=== PATIENT | female | born 1985 | race Hispanic/Latino ===

== ENCOUNTER 2023-05-25 16:25 | Emergency (ER) | payer BC ==
[~2023-05-25] VITALS: Ht 165.1 cm; Wt 83.9 kg
[2023-05-25] MEDS ORDERED: 0.9%NACL 1000ML 1,000 ML IV SCH (17:00)
[2023-05-25] MEDS ORDERED: KETOROLAC 30MG VIAL (30MG/ML) IVP ONE (17:00)
[2023-05-25 17:14] LABS: APPEARANCE,URINE CLEAR (CLEAR); BILIRUBIN,URINE NEGATIVE (NEGATIVE); GLUCOSE, URINE (UA) NEGATIVE (NEGATIVE); KETONES,URINE NEGATIVE (NEGATIVE); LEUKOCYTE ESTERASE ,URINE NEGATIVE Leu/uL (NEGATIVE); NITRATE,URINE NEGATIVE (NEGATIVE); PROTEIN,URINE NEGATIVE (NEGATIVE); UROBILINOGEN,URINE 0.2 mg/dL (0.2-1.0)
[2023-05-25 17:15] LABS: ADD UA MICROSCOPIC YES; COLOR,URINE LIGHT-YELLOW (YELLOW)
[2023-05-25 17:16] LABS: SQUAMOUS EPITHELIAL CELL,UR RARE /HPF (0-2); WBC,URINE 0-1 /HPF (0-1)
[2023-05-25 17:42] LABS: HEMATOCRIT 37.3 % (36-48); MEAN CORPUSCULAR HEMOGLOBIN 28.6 pg (27.0-33.0); MEAN CORPUSCULAR HGB CONC 33.5 g/dL (32.0-36.0); MEAN CORPUSCULAR VOLUME 85.4 fL (79-99); PLATELET COUNT (AUTO) 395 K/uL (130-400); RED BLOOD CELL COUNT(AUTO) 4.37 MIL/uL (4.00-5.50); RED CELL DISTRIBUTION WIDTH 12.9 % (11.0-15.5); WHITE BLOOD COUNT (AUTO) 10.8 K/uL (4.8-10.8)
[2023-05-25 17:58] LABS: CREATININE 0.7 mg/dL (0.5-1.5); POTASSIUM 3.8 mmol/L (3.5-5.1)
[2023-05-25 18:03] LABS: ALBUMIN 3.2 g/dL (3.5-5.0); BILIRUBIN,TOTAL 0.1 mg/dL (0.2-1.0); TOTAL PROTEIN, SERUM 7.4 g/dL (6.0-8.3)
[2023-05-25 18:41] LABS: BAND NEUTROPHILS % (MANUAL) 1 % (0-2); EOSINOPHILS % (MANUAL) 2 % (1-6); LYMPHOCYTES % (MANUAL) 37 % (22-44); MAN.DIFF COMMENT-IMPRESSION MANUAL DIFFERENTIAL; MONOCYTES % (MANUAL) 7 % (2-9); SEGMENTED NEUTROPHILS % 53 % (40-70); TOTAL CELLS COUNTED 100
[2023-05-25 18:42] LABS: PLATELET MORPHOLOGY COMMENT ADEQUATE; WBC MORPHOLOGY CONSISTENT W/DIFF
[2023-05-25 19:04] VITALS: BP 131/65; PULSE 84; RESP 18; O2SAT 98
[2023-05-25] MEDS ORDERED: IBUP-1493 PO (19:32)
[2023-05-25] MEDS ORDERED: CYCL-309 PO (19:32)
== END 2023-05-25 19:39 | disposition home or self-care (01) ==
LOC: EDH 16:25
DX: R07.89 Other chest pain (principal)
CPT/HCPCS: 99284; 96374; 71046; 96361; 80053; 85025; 81001; 81025; 36415; 76642; J1885

== ENCOUNTER 2024-04-30 19:20 | Emergency (ER) | payer BC ==
[~2024-04-30] VITALS: Ht 165.1 cm; Wt 89.4 kg
[~2024-04-30 19:20] MED LIST: CYCL-309 PO; IBUP-1493 PO
[2024-04-30 20:34] LABS: RAPID GROUP A STREP negative (NEGATIVE)
[2024-04-30 20:45] LABS: COVID19 (SARS ANTIGEN RAPID) PRESUMPTIVE NEGATIVE (NEGATIVE); INFLUENZA TYPE A Negative For Type A (NEGATIVE); INFLUENZA TYPE B Negative For Type B (NEGATIVE)
--- NOTE | 2024-04-30 20:52 | HMCIMG ---
INDICATION: cp TECHNIQUE: CHEST 1VW COMPARISON: 05/25/2023 FINDINGS/IMPRESSION: No acute consolidation or pleural effusion. Cardiac silhouette is within normal limits. Mild degenerative changes of the spine. The visualized upper abdomen appears unremarkable.
--- NOTE | 2024-04-30 20:53 | EKG ---
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
[2024-04-30] MEDS: guaiFENesin-DM 200/20MG 10ML PO ONE (21:18)
[2024-04-30] MEDS: acetaMINOPHEN 500 MG TABLET PO ONE (21:18)
[2024-04-30 21:53] VITALS: TEMP 98.7
--- NOTE | 2024-04-30 22:23 | ERN ---
ED Note History of Present Illness Stated Complaint: SOB Chief Complaint: Cough Time Seen by MD: 19:44 Time Seen by Midlevel: 19:44 Dictation: The patient is a 38-year-old female with a history of migraines who presents to the emergency department with complaints of cough with green sputum, fevers, shortness of breath onset Saturday. Allergies: Coded Allergies: No Allergy Information Available (Verified Allergy, Unknown, 10/17/16) No Known Drug Allergies (Unverified Allergy, Unknown, 05/25/23) Home Meds Active Scripts Ibuprofen (Motrin/Advil) 800 Mg Tab, 800 MG PO TID, #30 TAB Prov:NORMA YOUGN MD 05/25/23 Cyclobenzaprine HCl (Cyclobenzaprine HCl) 10 Mg Tablet, 10 MG PO TIDP PRN for PAIN, #30 TAB Prov:NORMA YOUNG MD 05/25/23 Past Medical History Past Medical History: Migraines Surgical History: Tonsillectomy, Other Surgical History Other: NOSE SX LMP: Apr 05, 2024 RN Note Reviewed/Agreed w/PFSH: Yes Review of System Dictation Constitutional: Negative for fever,chills, and weight loss Eyes: Negative for injury, pain,redness, and discharge ENT: Negative for injury,pain or swelling Cardiovascular: Negative for chest pain, palpitations, and edema Respiratory: Negative for , and wheezing, positive for shortness of breath, cough Abdomen/GI: Negative for abdominal pain, nausea, vomiting, diarrhea, and constipation Back: Negative for injury and pain : Negative for injury, bleeding and discharge MS/Extremity: Negative for injury and deformity Skin: Negative for rash, and discoloration Neuro: Negative for headache, weakness, numbness, tingling, and seizure Psych: Negative for suicide ideation, homicidal ideation, and hallucinations Initial Vital Sign VS Vital Signs Date Time Temp Pulse Resp B/P (MAP) Pulse Ox O2 Delivery O2 Flow Rate FiO2 04/30/24 19:49 99.9 111 20 168/96 100 Room Air 0 04/30/24 21:15 21 Physical Exam Dictation Vital Signs reviewed General Appearance: Alert, oriented x 3, no acute distress, well developed, nourished. Head and Face: non-traumatic. Eyes: PERRL, pink conjunctivas, eyelid no trauma, anterior chamber with arcus senilis. Ears: Pinnas intact and no signs of trauma or erythema ear canals clear and no discharge TM no erythema Nose: No discharge, no bleeding. Oropharynx: Mouth normal, tongue pink. pharynx clear,no erythema, tonsils no exudates, no abscesses noted, mucous membrane moist Neck: Supple, non-tender, no thyromegaly, no masses, no JVD, no bruits Breast:Deferred Chest:No tenderness, no crepitus, no paradoxical movement, no retractions Lungs:Clear, well-ventilated, symmetric, no rales, no wheezing, no rhonchi, no stridor, good breath sounds bilaterally Heart: Regular rate, regular rhythm, no murmur, no gallops Vascular: no peripheral edema, Abdomen: Soft, positive bowel sounds, nondistended, no guarding, nontender, no rebound, no masses no hepatomegaly, no splenomegaly, no Ontiveros's sign, no hernias. Rectal: Deferred Genital: Deferred Neurological: Normal speech, motor function intact, sensory function intact Musculoskeletal: Neck nontender, full range of motion, back nontender, full range of motion, Extremities: nontender, full range of motion Skin: Color pink, dry, no turgor, no rash, no lacerations, no abrasions, no contusions. Lymphatic: Deferred Results (Laboratory/Radiology) Laboratory/Radiology Laboratory Tests Test 04/30/24 18:55 04/30/24 21:34 Influenza Type A Antigen Negative For Type A Influenza Type B Antigen Negative For Type B SARS-CoV-2 Antigen (Rapid) PRESUMPTIVE NEGATIVE Group A Streptococcus Rapid negative (NEGATIVE) Urine HCG, Qualitative NEGATIVE (NEGATIVE) REASON: cp ORDERING PHYSICIAN: HAYDEE THOMAS PROCEDURE: CXR1VW - CHEST 1VW INDICATION: cp TECHNIQUE: CHEST 1VW COMPARISON: 05/25/2023 FINDINGS/IMPRESSION: No acute consolidation or pleural effusion. Cardiac silhouette is within normal limits. Mild degenerative changes of the spine. The visualized upper abdomen appears unremarkable. Labs Reviewed?: Yes EKG: (+) rhythm (Sinus rhythm) EKG Comment: EKG 04/30/20242050 ventricular rate 98, regular rate and rhythm, normal sinus rhythm, no STEMI ED Course ED Course Orders Procedure Category Date Status Time Covid19 (Sars Antigen LAB 04/30/24 Complete Rapid) 19:55 Influenza Type A & B, LAB 04/30/24 Complete Rapid 19:55 Rapid (Group A Strep) LAB 04/30/24 Complete 19:55 Chest 1vw RAD 04/30/24 Resulted 20:17 12 Lead Ekg Tracing- EKG 04/30/24 Resulted Technical 20:17 ,Urine Test LAB 04/30/24 Complete 20:17 Acetaminophen 500mg PHA 04/30/24 Complete Tab (Tylenol 500mg T 20:30 Guaifenesin-Dm PHA 04/30/24 Complete 200/20mg 10ml 20:30 Current Medications Medications (Trade) Dose Ordered Sig/Anthony Route PRN Reason Start Time Stop Time Status Last Admin Dose Admin Acetaminophen (TYLenol 500MG TAB) 1,000 mg ONCE ONCE PO 04/30/24 20:30 04/30/24 20:31 DC 04/30/24 21:18 Guaifenesin/ Dextromethorphan (RobiTUSSin DM 200/20MG 10ML) 10 ml ONCE ONCE PO 04/30/24 20:30 04/30/24 20:31 DC 04/30/24 21:18 Vital Signs Date Time Temp Pulse Resp B/P (MAP) Pulse Ox O2 Delivery O2 Flow Rate FiO2 04/30/24 21:18 99.9 04/30/24 21:15 99.9 110 18 165/95 100 Room Air* 0 21 04/30/24 19:49 99.9 111 20 168/96 100 Room Air 0 Medical Decision Making MDM The patient is a 38-year-old female with a history of migraines who presents to the emergency department with complaints of cough with green sputum, fevers, shortness of breath onset Saturday. Chest x-ray showed no acute pathology, serology negative. Patient's symptoms consistent with upper respiratory infection. Patient no acute distress will be discharged to follow up with primary doctor. Differential diagnosis: Pneumonia, pneumothorax, upper respiratory infection Need for hospitalization: Patient does not meet criteria for hospitalization. There are no social concerns with this patient. DX & DISP Disposition: Discharge Departure Impression: Primary Impression: Upper respiratory infection Additional Impression: Cough Condition: Stable Scripts Benzonatate (Tessalon Perles) 100 Mg Cap 1 CAP PO TID for cough for 10 Days, #30 CAP 0 Refills Prov: HAYDEE THOMAS [employer] 04/30/24 Additional Instructions: Please follow up with PCP in 1-2 days. Please return to ER if symptoms worsen. FOLLOW-UP WITH PRIMARY CARE PROVIDER IN 1 TO 2 DAYS. TAKE MEDICATIONS DIRECTED HERE IN THE EMERGENCY ROOM. OKAY TO CONTINUE HOME MEDICATIONS UNLESS OTHERWISE DISCUSSED DURING YOUR VISIT IN THE EMERGENCY ROOM TODAY. RETURN TO YOUR NEAREST EMERGENCY ROOM IF SYMPTOMS WORSEN OR IF THERE IS NO IMPROVEMENT. CALL 911 IF YOU NEED IMMEDIATE ASSISTANCE. TAKE TYLENOL OR MOTRIN [id number] NEEDED AND IF NO CONTRAINDICATIONS ARE PRESENT. INCREASE ORAL HYDRATION. A WOUND CULTURE OR URINE CULTURE WAS ORDERED HERE IN THE EMERGENCY ROOM DEPARTMENT PLEASE FOLLOW-UP WITH PRIMARY CARE PROVIDER AND ADVISE THEM TO GET REPEAT PORTS FROM OUR FACILITY. IF YOU HAD ANY ADAMS WRAP/SPLINTS THAT WERE APPLIED HERE, PLEASE DO NOT REMOVE THEM UNTIL YOU SEE YOUR PRIMARY CARE OR SPECIALTY. Referrals: SELF,REFERRAL (PCP) Time of Disposition: 22:26 I have reviewed the case, and I agree with, Diagnosis and Plan HAYDEE THOMAS [facility] Apr 30, 2024 22:23
[2024-04-30] MEDS ORDERED: BENZ-39 PO (22:27)
[2024-04-30 22:34] VITALS: BP 155/88; PULSE 110; RESP 18; TEMP 98.7; O2SAT 100
== END 2024-04-30 22:37 | disposition home or self-care (01) ==
LOC: EDH 19:20
DX: J06.9 Acute upper respiratory infection, unspecified (principal); Z20.822 Contact with and (suspected) exposure to COVID-19; Z79.1 Long term (current) use of non-steroidal anti-inflammatories (NSAID); Z90.89 Acquired absence of other organs; G43.909 Migraine, unspecified, not intractable, without status migrainosus; Z98.890 Other specified postprocedural states
CPT/HCPCS: 71045; 81025; 87426; 87804; 87880; 93005; 99284